=== PATIENT | female | born 1960 | race Asian ===

== ENCOUNTER 2024-04-05 13:29 | Outpatient (AMB) | payer OTHER, SELFPAY ==
--- NOTE | 2024-04-05 13:47 | MHC.OFFWIV ---
Intake Vital Signs 04/05/24 13:52 Height 4 ft 11 in Weight 45.359 kg BMI 20.2 BP 154/80 H Blood Pressure Location Rt brachial Position Sitting Pulse 73 Pulse Source Pulse Oximeter Pulse Oximetry (%) 97 Oxygen Delivery Method Room Air Intake Visit Reasons: EP cut on rt foot Intake Note: pt is here for cut on right foot Patient Tobacco Use Status: Never used Tobacco Allergies No Known Allergies Allergy (Verified 04/05/24 13:47) Do you need a note to return to daycare/school/sports/work: No HPI EP cut on rt foot HPI Details Patient presents with multiple issues. The 1st being as she is out of her blood pressure medication and has upcoming visit with her PCP in this clinic next month. Her 2nd concern is a laceration on her left foot sustained 4 days ago by the corner of a metal door. She notes cleaning the wound and applying Neosporin daily. She she denies pain, fever there is a small amount of pink area around it was concern for infection. [facility] Social History Patient Tobacco Use Status: Never used Tobacco Review of Systems Const Reports as per HPI and Reports no additional complaints Card Reports as per HPI and Reports no additional complaints Resp Reports as per HPI and Reports no additional complaints Musc Reports no additional complaints and Reports as per HPI Skin/Breast Denies lesions Physical Exam Vital Signs: Last Vital Signs Pulse 73 04/05/24 13:52 BP 154/80 H 04/05/24 13:52 Pulse Ox 97 04/05/24 13:52 Oxygen Delivery Method Room Air 04/05/24 13:52 BMI result Body Mass Index 20.2 Const General: cooperative, comfortable and no acute distress Orientation/consciousness: patient oriented x3 Resp Effort & Inspection: normal respiratory effort Auscultation: clear to auscultation bilaterally Cardio Rate: regular rate Rhythm: regular rhythm Heart sounds: S1 normal heart sound present and S2 normal heart sound present Skin Trauma: laceration right ankle linear (2.5 cm laceration healing well with a mild dusky pink surrounding wound 2 mm.), motor nerve function intact and sensation intact Neuro General: patient oriented x3 Results Reviewed Results Reviewed: Reviewed MIS immunization she has up-to-date tetanus done in January of 2022. Assessment & Plan Assessment & Plan (1) Hypertension: Code(s): I10 - Essential (primary) hypertension Qualifiers: Hypertension type: primary hypertension Qualified Code(s): I10 - Essential (primary) hypertension Plan: Refilled patient medication for 90 day supply until seen by PCP. (2) Laceration of right foot: Code(s): S91.311A - Laceration without foreign body, right foot, initial encounter Qualifiers: Encounter type: initial encounter Qualified Code(s): S91.311A - Laceration without foreign body, right foot, initial encounter Plan: Tetanus up-to-date. No signs or symptoms of infection today wound is healing well it does appear was somewhat deep and could have used closure by primary intention at the time. Discontinue use of Neosporin explain patient's often develop sensitivity after 1-2 days used to this. Cover to avoid friction with shoes otherwise can leave open to air. Medications: New hydrochlorothiazide 25 mg PO DAILY 90 tabs 0RF Coding Level of Care Code Est Pt Level 4 (14634) Diagnoses Primary hypertension I10 Hypertension type: primary hypertension Laceration of right foot, initial encounter S91.311A Encounter type: initial encounter
[2024-04-05 13:52] VITALS: BP 154/80; PULSE 73; O2SAT 97; BMI 20.2
== END 2024-04-05 14:29 | disposition home or self-care (01) ==
PROVIDERS: PCP Internal Medicine; Visit Provider Physician Assistant
DX: I10 Essential (primary) hypertension (principal); S91.311A Laceration without foreign body, right foot, initial encounter
CPT/HCPCS: 99214

== ENCOUNTER 2024-07-21 09:40 | Outpatient (AMB) | payer OTHER, SELFPAY ==
--- NOTE | 2024-07-21 09:57 | MHC.PC.OV ---
Vital Signs 07/21/24 10:00 07/21/24 10:24 Height 4 ft 11 in Weight 89 lb 8 oz BMI 18.1 BP 120/80 120/80 Blood Pressure Location Lt brachial Rt brachial Position Sitting Sitting Pulse 69 Pulse Source Pulse Oximeter Pulse Oximetry (%) 100 Oxygen Delivery Method Room Air Intake Visit Reasons: N/P b/P Intake Note: Pt is here today as a New Patient to [facility] care/B/P elevated Allergies No Known Allergies Allergy (Verified 07/21/24 10:25) Medication List - Last Reconciled 07/21/24 by Daisy Cordova MD estradiol 0.01%(0.1mg/gram) vaginal hydrochlorothiazide 25 mg PO DAILY Tobacco use date assessed: 07/21/24 Dental Screening Dental Screen Date: 07/21/24 Did you have a dental visit in the last 12 months?: Yes Did you have a dental problem in the last 6 months where you did not have access to dental care?: No Was dental information given to patient?: Patient has dentist HPI N/P b/P HPI Details 63-year-old lady, new to practice, here today to establish care with a new PCP. She has hypertension currently on hydrochlorothiazide only 25 mg daily. She states that she has states that she has been on these now for years, feels well on the medication with no nocturia, no weakness, no chest pain or lightheadedness, no shortness of breath reported. She sees Dr. Still for her routine Pap and pelvic, currently up-to-date. 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 States that she is up-to-date with her mammogram, and has had Cologuard testing done earlier this year which came back negative. [facility] Medical History (Updated 07/21/24 @ 10:28 by Daisy Cordova MD) Hx of uterine prolapse Vaginal dryness, menopausal Essential hypertension Surgical History (Updated 07/21/24 @ 10:28 by Daisy Cordova MD) S/P partial hysterectomy Family History (Updated 07/21/24 @ 10:32 by Daisy Cordova MD) Other No significant family history Social History Housing: House Patient Tobacco Use Status: Never used Tobacco e-Cigarette/Vaping Use: Never Used service: No Current occupational status: retired Cognitive needs: No Hearing needs: No Vision needs: Yes Female Reproductive History Menstrual Other: Sees Dr. Still, last Pap smear was done 06/2024, had a negative Cologuard test done also this year Questionnaire PHQ-9 Over the last 2 weeks, how often have you been bothered by any of the following problems? 1. Little interest or pleasure in doing things: not at all 2. Feeling down, depressed, or hopeless: not at all 3. Trouble falling or staying asleep, or sleeping too much: not at all 4. Feeling tired or having little energy: not at all 5. Poor appetite or overeating: not at all 6. Feeling bad about yourself - or that you are a failure or have let yourself or your family down: not at all 7. Trouble concentrating on things, such as reading the newspaper or watching television: not at all 8. Moving or speaking so slowly that other people could have noticed. Or the opposite - being so fidgety or restless that you have been moving around a lot more than usual: not at all 9. Thoughts that you would be better off or of hurting yourself in some way: not at all Total score: 0 Depression Screening Interpretation: Negative Depression Screening Done: Yes 88119 - PHQ-9 Billing: Yes Source: Developed by Drs. Kareem Haynes, Connie Morataya, Dylan Myrick and colleagues, with an educational manuel from [employer]. Thrive Questionnaire Date Thrive assessed: 07/21/24 I am a: Patient What is your living situation today?: I have a steady place to live Within the past 12 months, did the food you bought not last and you didn't have the money to get more?: Never true Within the past 12 months, did you worry whether your food would run out before you got money to buy more?: Never true Do you have trouble paying for medicines?: No Do you have trouble getting transportation to medical appointments?: No Do you have trouble paying your heating and electricity bill?: No Do you have trouble taking care of your child, family member or friend?: No Do you have trouble with day-to-day activities such as bathing, preparing meals, shopping, managing finances, etc.?: No Are you interested in more education?: No Please select the resources that you would like help with: None Currently or been in a relationship where the following occur: No concerns reported THRIVE Score: 0 AUDIT C Alcohol Use Questionnaire (AUDIT-C) 1. How often do you have a drink containing alcohol?: Never Total Score: 0 ROME-7 AMB Questionnaire ROME-7 Date ROME - 7 assessed: 07/21/24 Feeling nervous, anxious, or on edge: 0 = Not at all Not being able to stop or control worryin = Not at all Worrying too much about different things: 0 = Not at all Trouble relaxin = Not at all Being so restless that it is hard to sit still: 0 = Not at all Becoming easily annoyed or irritable: 0 = Not at all Feeling afraid as if something awful might happen: 0 = Not at all Total ROME-7 score (0-4 normal; 5-9 mild; 10-14 moderate; 15-21 severe): 0 Source: Developed by Drs. Kareem Haynes, Connie Morataya, Dylan Myrick and colleagues, with an educational manuel from [employer]. ROME-7 Assessment Billing ROME-7 Assessment Tool: ROME-7 Assessment 51264 Review of Systems Const Denies body aches, Denies fatigue, Denies fever(s), Denies headache(s) and Denies weakness Eyes Denies change in vision ENT Denies dizziness, Denies headache(s), Denies nasal congestion and Denies nasal discharge Card Denies chest pain, Denies lightheadedness, Denies palpitations and Denies dyspnea Resp Denies chest congestion, Denies cough, Denies dyspnea and Denies wheezing GI Denies abdominal pain, Denies change in bowel habits and Denies heartburn Denies hematuria, Denies urinary frequency, Denies dysuria and Denies urinary urgency Musc Reports no additional complaints Skin/Breast Denies breast pain, Denies breast mass, Denies lesions and Denies rash Neuro Denies dizziness, Denies headache(s) and Denies weakness Psych Reports no additional complaints Endo Denies fatigue, Denies polydipsia, Denies polyuria and Denies palpitations Timi/Lymph Denies easy bruising Aller/Immun Denies seasonal rhinorrhea and Denies wheezing Physical exam (Primary Care) Vital Signs: Last Vital Signs Pulse 69 07/21/24 10:00 BP 120/80 07/21/24 10:24 Pulse Ox 100 07/21/24 10:00 Oxygen Delivery Method Room Air 07/21/24 10:00 BMI result Body Mass Index 18.1 Tobacco/Smoking Status: Tobacco use Status Tobacco use date assessed 07/21/24 07/21/24 10:05 Patient Tobacco Use Status Never used Tobacco 07/21/24 09:58 e-Cigarette/Vaping Use Never Used 07/21/24 10:05 PHQ-9: PHQ-9 Score PHQ-9: Total score 0 07/21/24 10:22 Depression Screening Interpretation: Negative Thrive Assessment: Date of Thrive Assessment Date Thrive assessed 07/21/24 07/21/24 10:05 Currently or been in a relationship where the following occur: No concerns reported Const General: comfortable, no acute distress and alert Orientation/consciousness: patient oriented x3 HENMT Ears: external ears normal General nose exam: Normal external nose present Mouth: Normal oral and palatal mucosa present, oropharynx normal and moist mucous membranes Eyes General: appearance normal, both eyes and all related structures Neck Neck: Yes full ROM, Yes no lymphadenopathy and Yes supple Resp Effort & Inspection: normal respiratory effort and able to speak in complete sentences Auscultation: clear to auscultation bilaterally Cardio Rate: regular rate Rhythm: regular rhythm Heart sounds: S1 normal heart sound present and S2 normal heart sound present GI Palpation (GI): Soft to palpation, nontender and no masses Auscultation: normal bowel sounds Skin General skin exam: no rashes or lesions noted Neuro General: patient oriented x3, gait normal, tone normal, moves all extremities, Normal light touch and pain sensation and no focal motor deficits Cranial nerves: Yes CN's II-XII intact bilaterally Cognition (Neuro): normal cognition Extrem General: Yes full ROM, Yes no joint enlargement, Yes no clubbing, cyanosis or edema and Yes no calf tenderness Psych Appearance: grossly normal and well kempt Mental Status: mental status grossly normal Speech and movement: Normal speech and movement present Affect: normal affect Attitude: cooperative Thought process: Normal thought process present Thought content: Normal thought content present Assessment and Plan Assessment & Plan (1) Essential hypertension: Code(s): I10 - Essential (primary) hypertension Plan: Blood pressure at goal of less than 130/80. Continue with current medication. Reinforced importance of following a low sodium diet, getting regular exercise, and lowering stress levels. Refill prescription sent for hydrochlorothiazide 25 mg per tablet taken once a day 90 tablets with 3 refills. (2) Vaginal dryness, menopausal: Code(s): N95.1 - Menopausal and female climacteric states Plan: Uses estradiol 0.01% vaginal cream as needed for vaginal dryness, currently being followed by Dr. Still, copy of last Pap smear, mammogram and Cologuard test results requested Orders: Orders Aspartate Amino Transferase Today I10 - Essential (primary) hypertension, Z78.0 - Asymptomatic menopausal state Lipid Panel Today I10 - Essential (primary) hypertension, Z78.0 - Asymptomatic menopausal state Vitamin D 25-OH Total Today I10 - Essential (primary) hypertension, Z78.0 - Asymptomatic menopausal state Basic Metabolic Panel Fasting Today I10 - Essential (primary) hypertension, Z78.0 - Asymptomatic menopausal state Alanine Aminotransferase Today I10 - Essential (primary) hypertension, Z78.0 - Asymptomatic menopausal state Medications: Refilled hydrochlorothiazide 25 mg PO DAILY 90 tabs 2RF Coding Level of Care Code New Pt Level 3 (34828) Diagnoses Essential hypertension I10 Vaginal dryness, menopausal N95.1 Additional Codes ROME-7 Assessment Billing - ROME-7 Assessment Tool: ROME-7 Assessment 22963 ([id number])
[2024-07-21 10:00] VITALS: BP 120/80; PULSE 69; O2SAT 100; BMI 18.1
[2024-07-21 10:24] VITALS: BP 120/80
== END 2024-07-21 10:58 | disposition home or self-care (01) ==
PROVIDERS: PCP Internal Medicine; Visit Provider Internal Medicine
DX: I10 Essential (primary) hypertension (principal); N95.1 Menopausal and female climacteric states

== ENCOUNTER → 2024-07-21 09:40 | Outpatient (BNVA) | payer OTHER, SELFPAY | PROVIDERS: PCP Internal Medicine; Visit Provider Internal Medicine | DX: I10 Essential (primary) hypertension (principal); N95.1 Menopausal and female climacteric states | CPT/HCPCS: 96127; 99202 ==

== ENCOUNTER 2024-07-28 12:59 | Outpatient (REF) | payer OTHER, SELFPAY ==
[2024-07-28 17:01] LABS: Alanine Aminotransferase 19 U/L (0-31); Anion Gap 11 (12-20); Aspartate Amino Transferase 22 U/L (5-31); Blood Urea Nitrogen 13 mg/dL (9-16); Calcium 9.4 mg/dL (8.4-10.2); Carbon Dioxide 27 mmol/L (22-29); Chloride 106 mmol/L (96-108); Cholesterol 252 mg/dL (<200); Estimated Glomerular Filt Rate > 60; Glucose Fasting 93 mg/dL (60-99); HDL Cholesterol 60 mg/dL (>40); LDL Cholesterol Calculated 154 mg/dL (<100); Potassium 3.6 mmol/L (3.3-5.1); Sodium 140 mmol/L (135-145); Triglycerides 192 mg/dL (<150)
[2024-07-28 17:19] LABS: Vitamin D 25-OH Total 39.6 ng/mL (>30)
== END 2024-07-28 13:00 | disposition home or self-care (01) ==
LOC: HO.HMGCLDS 12:59
PROVIDERS: PCP Internal Medicine; Visit Provider Internal Medicine
DX: I10 Essential (primary) hypertension (principal); Z78.0 Asymptomatic menopausal state
CPT/HCPCS: 36415; 80048; 80061; 82306; 84450; 84460

== ENCOUNTER 2024-10-05 12:30 | Outpatient (AMB) | payer OTHER, SELFPAY ==
[2024-10-05 13:08] VITALS: BP 138/90; PULSE 75; O2SAT 99
--- NOTE | 2024-10-05 13:08 | MHC.OFFWIV ---
Intake Vital Signs 10/05/24 13:08 Weight 90 lb 6 oz BP 138/90 H Blood Pressure Location Lt brachial Position Sitting Pulse 75 Pulse Source Pulse Oximeter Pulse Oximetry (%) 99 Oxygen Delivery Method Room Air Intake Visit Reasons: EP rash on RT eye, itching Intake Note: Patient here for rash on right eye, also has rash on back that has been present for abut 3 weeks. Patient Tobacco Use Status: Never used Tobacco Allergies No Known Allergies Allergy (Verified 10/05/24 13:15) Do you need a note to return to daycare/school/sports/work: No HPI EP rash on RT eye, itching HPI Details This note is constructed using voice recognition software. While every effort has been made to ensure accuracy, card cutter errors may have been included. The patient is a 63 year old female who presents to the clinic today with itchy rash to right eyelid in her back for the past 3 weeks. She denies any new soaps, lotions, detergents, foods. She notes that her skin gets itchy, she puts got calamine lotion and improves, and then it comes back. She denies fever or joint pains. She has not had anything like this before. [facility] Medical History (Updated 07/21/24 @ 10:28 by Daisy Cordova MD) Hx of uterine prolapse Vaginal dryness, menopausal Essential hypertension Surgical History (Updated 07/21/24 @ 10:28 by Daisy Cordova MD) S/P partial hysterectomy Family History (Updated 07/21/24 @ 10:32 by Daisy Cordova MD) Other No significant family history Social History Housing: House Patient Tobacco Use Status: Never used Tobacco e-Cigarette/Vaping Use: Never Used service: No Current occupational status: retired Cognitive needs: No Hearing needs: No Vision needs: Yes Review of Systems Const All systems reviewed & are unremarkable except as noted in HPI and below Physical Exam Vital Signs: Last Vital Signs Pulse 75 10/05/24 13:08 BP 138/90 H 10/05/24 13:08 Pulse Ox 99 10/05/24 13:08 Oxygen Delivery Method Room Air 10/05/24 13:08 Const General: cooperative, healthy appearing, comfortable, no acute distress and well developed Orientation/consciousness: patient oriented x3 Limitations: no limitations Resp Effort & Inspection: normal respiratory effort and able to speak in complete sentences Skin Other: Dry excoriated skin to right upper eyelid, with similar pattern to upper back. No surrounding erythema, warmth, discharge, or signs of secondary bacterial infection. Neuro General: patient oriented x3 Assessment & Plan Assessment & Plan (1) Eczema: Code(s): L30.9 - Dermatitis, unspecified Qualifiers: Eczema type: unspecified Qualified Code(s): L30.9 - Dermatitis, unspecified Plan: Advised to increase hydration, application of emollients. Systemic steroid prescribed for symptomatic management due to location and widespread symptoms. Advised follow up with PCP with worsening or failure to resolve. Plan See above for full details and plan. Medications: New prednisone 5 tablets daily for 2 days, then 4 tablets daily for 2 days, then 3 tablets daily for 2 days, then 2 tablets daily for 2 days, then 1 tablet daily for 2 days. 10 mg PO DIRECTED 30 tabs 0RF Coding Level of Care Code Est Pt Level 3 (53239) Diagnoses Eczema, unspecified type L30.9 Eczema type: unspecified
== END 2024-10-05 13:37 | disposition home or self-care (01) ==
PROVIDERS: PCP Internal Medicine; Visit Provider Registered Nurse
DX: L30.9 Dermatitis, unspecified (principal)

== ENCOUNTER → 2024-10-05 12:30 | Outpatient (BNVA) | payer OTHER, SELFPAY | PROVIDERS: PCP Internal Medicine; Visit Provider Registered Nurse | DX: L30.9 Dermatitis, unspecified (principal) | CPT/HCPCS: 99212 ==

== ENCOUNTER 2025-03-29 13:20 | Outpatient (AMB) | payer OTHER, SELFPAY ==
--- NOTE | 2025-03-29 13:26 | AM.OFFWIN_ITS ---
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 No discharge No fever or chills No one with similar rash She admits to having it in thr past and being seen; was given a Prednisone in October and it resolved it No vision changes but sometimes notices itchy eyes. Has tried saline eye drops which helps Some congestion associated but none currently No CP or SOB/cough Ears blocked: She said intermittent blocked No pain associated, 0/10 No drainage frome ars [facility] Medical History (Updated 03/29/25 @ 14:06 by Nay Monreal PA-C) Hx of uterine prolapse Vaginal dryness, menopausal Essential hypertension Surgical History (Updated 07/21/24 @ 10:28 by Daisy Cordova MD) S/P partial hysterectomy Family History (Updated 07/21/24 @ 10:32 by Daisy Cordova MD) Other No significant family history Social History Housing: House Patient Tobacco Use Status: Never used Tobacco e-Cigarette/Vaping Use: Never Used Patient : No service: No Current occupational status: retired Cognitive needs: No Hearing needs: No Vision needs: Yes Review of Systems Const Denies chills, Denies fever(s) and Denies headache(s) Eyes Denies change in vision, Reports irritation and Reports itchy eyes ENT Denies ear discharge, Denies otalgia (+ blocked ears), Denies headache(s), Reports nasal congestion and Denies sore throat Card Denies chest pain Resp Denies cough Musc Denies myalgias Skin/Breast Reports pruritus and Reports rash Neuro Denies headache(s) Aller/Immun Reports itchy eyes Physical Exam Vital Signs: Last Vital Signs Temp 98.1 F 03/29/25 13:30 Pulse 76 03/29/25 13:30 Resp 16 03/29/25 13:30 BP 140/70 H 03/29/25 13:30 Pulse Ox 98 03/29/25 13:30 Oxygen Delivery Method Room Air 03/29/25 13:30 BMI result Body Mass Index 20.2 General: Non-toxic, NAD. Speaking full sentences. Skin: Warm dry throughout. Pt has approx 7 patches of dry slightly erythematous skin with scabbed 1-2mm circular lesions. + excoriations. No discharge, induration or fluctuance. patches of dry erythematous skin are located to Eye: EOMI, PERRL. No conjunctival erythema or discharge. No periorbital edema or erythema or rashes/lesions HENT: Airway patent. Uvula midline. No pharyngeal erythema or edema. No LEVEL VIAL INSPECTOR AND TESTER. Bilateral canals occluded with cerumen Respiratory: No respiratory distress MSK: Full ROM extremities. Neurology: Alert. No aphasia or facial droop. Gait without abnormality Psych: Good mood and affect Office Procedures Cerumen Removal Details: verbal consent obtained. Curette and irrigation used. Pt tolerated well without complication. No TM perforation or canal trauma From which ear canal was the cerumen removed: bilateral Removal: irrigation and otoscope w/curette Notes: patient tolerated procedure well, no complications and ear canal clear [id number] Wax Removal by Spoon/Curette Assessment & Plan Assessment & Plan (1) Impacted cerumen of both ears: Code(s): H61.23 - Impacted cerumen, bilateral Plan: see procedure note (2) Contact dermatitis: Code(s): L25.9 - Unspecified contact dermatitis, unspecified cause Qualifiers: Contact dermatitis type: unspecified Contact dermatitis trigger: unspecified trigger Qualified Code(s): L25.9 - Unspecified contact dermatitis, unspecified cause Plan: No sign of scabies or cellulitis on exam Rash not fungal appearing in nature Will tx with topical cortisone and avoid oral medication at this time due to specific locations; rash not diffuse Discussed tx usage and worsening s/s to monitor for All questions answered at time of discharge Pt gave verbal understanding. Medications: New triamcinolone acetonide 0.5% 1 appl topical BID PRN 15 grams 2RF itching 14 days Coding Level of Care Code Est Pt Level 3 (42689) Diagnoses Impacted cerumen of both ears H61.23 Contact dermatitis, unspecified contact dermatitis type, unspecified trigger L25.9 Contact dermatitis type: unspecified Contact dermatitis trigger: unspecified trigger CPT Codes Office Procedure - CPT: 74579-Rbn Wax Removal by Spoon/Curette ([id number])
[2025-03-29 13:30] VITALS: BP 140/70; PULSE 76; RESP 16; TEMP 36.7; O2SAT 98; BMI 20.2
== END 2025-03-29 13:59 | disposition home or self-care (01) ==
PROVIDERS: PCP Internal Medicine; Visit Provider Physician Assistant
DX: L25.9 Unspecified contact dermatitis, unspecified cause (principal); H61.23 Impacted cerumen, bilateral

== ENCOUNTER → 2025-03-29 13:20 | Outpatient (BNVA) | payer OTHER, SELFPAY | PROVIDERS: PCP Internal Medicine; Visit Provider Physician Assistant | DX: H61.23 Impacted cerumen, bilateral (principal); L25.9 Unspecified contact dermatitis, unspecified cause | CPT/HCPCS: 69210; 99212 ==

== ENCOUNTER 2025-05-09 10:47 | Outpatient (REF) | payer OTHER, SELFPAY ==
--- OUTSIDE RECORDS SUMMARY | 2025-05-09 11:50 | XMS_ITS | Patient Health Record ---
Author Organization [facility] Address [address] [place] [address] Care Team Providers Care Metal Smelter Name Role Phone PHAN DEMARCO MD Primary Care Provider Yasminekleber mirella Latrice Still Unavailable [phone] Allergies No Known Allergies Results Component Value Reference Range Notes Urinalysis Reviewed date:06/20/2024 02:24:45 PM Interpretation: Performing Lab: Notes/Report: PH 6.0 PROTEIN Neg GLUCOSE Neg BLOOD Neg [id number] IGP No Culture 30 Plus Reviewed date:06/24/2024 08:50:35 AM Interpretation: Performing Lab:[facility] [place], [address], [address], [place], Phone - [phone], Director - [facility] Notes/Report: Clinical Information:Vaginal/Cervical, LMP: Hys t 11/2021 Source.............Cervix;Vagina LMP / Prev Treat...Hyst Dates / Results....03/28/21 ASCUS, Neg HPV Other..............Post Menopausal;Estrogen Replace Rx No. of containers..01 ThinPrep Vial DIAGNOSIS: NEGATIVE FOR IN TRAEPITHELIAL LESION OR MALIGNANCY. Specimen adequacy: Satisfact ory for evaluation. No endocervical component is identified. Clinician provided ICD10: Z0 1.419 Performed by: Keny Nugent Technical Support Assistant ([facility]) . . Note: The Pap smear is a screening test designed to aid in the detection of premalignant and malignant conditions of the uterine cervix. It is not a diagnostic procedure and should not be used as the sole means of detecting cervical cancer. Both false-positive and false-negative reports do occur. . Test Methodology: This liquid based ThinPrep(R) pap test was screened with the use of an image guided system. HPV Aptima Negative Negative This nucleic acid amplification test detects fourteen high-risk HPV types (16,18,31,33,35,39,45,51,52,56,58 ,59,66,68) without differentiation. HPV Genotype Reflex Criteria not met, HPV Genotype not performed. PDF Report Reviewed date:06/24/2024 08:50:16 AM Interpretation: Performing Lab:[facility] [place], [address], [address], [place], Phone - [phone], Director - [facility] Notes/Report: Clinical Information:Vaginal/Cervical, LMP: Hys t 11/2021 Source.............Cervix;Vagina LMP / Prev Treat...Hyst Dates / Results....03/28/21 ASCUS, Neg HPV Other..............Post Menopausal;Estrogen Replace Rx No. of containers..01 ThinPrep Vial Reason For Referral No Information Medications Medication SIG (Take, Route, Frequency, Duration) Notes Start Date End Date Status hydroCHLOROthiazide 25 MG 1 tablet Orall y Once a day Active Estradiol 0.1 MG/GM 1 GRAM Vaginal Two times a Week; Duration: 90 days 06/20/2024 Active Estradiol Vaginal Cream 0.01% 1 Gram to the affected area Vaginal/Vulva Twice a week; Duration: 90 Days 06/17/2023 Active Social History Tobacco Use: Social History Observation Description Date Details (start date - stop date) Never Smoker NA - NA Sexual History Question Answer Notes Had sex in the past 12 months (vaginal, oral, or anal)? Yes with Men only Prevention strategies discussed: Other AUDIT-C (Standard) Question Answer Notes Did you have a drink containing alcohol in the p ast year? 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 CONTRACEPTION: condoms .CE: Smoking: Never a smoker .CE: ALCOHOL: none TEXT MESSAGING WHILE DRIVING: no SUNSCREEN: yes ILLICIT DRUGS: no SEATBEALT: yes Problems Problem Type SNOMED Code ICD Code Onset Dates Problem Status W/U Status Risk Notes Problem Postmenopausal atrophic vaginitis (38630112) Postmenopausal atrophic vaginitis (N95.2) Active confirmed Problem Incomplete uterovaginal prolapse (793547420) Incomplete uterovaginal prolapse (N81.2) Active confirmed Problem Herniation of rectum into vagina (134523446) Rectocele (N81.6) Active confirmed Problem Age-related osteoporosis (064944487) Age-related osteoporosis without current pathological fracture (M81.0) Active confirmed Problem Cystocele (393647829) Cystocele, unspecified (N81.10) Active confirmed Problem Benign essential hypertension (5174891) Essential hypertension, benign (401.1) Active confirmed Major Problem Gynecological examination normal (582427119347436) Routine gynecological examination (V72.31) Active confirmed Major Problem Screening for malignant neoplasm of colon (132132798) Special screening for malignant neoplasms, colon (V76.51) Active confirmed Major Vital Signs Temperature 97.9 degrees Fahrenheit 06/20/2024 Blood pressure diastolic 80 mm Hg 06/20/2024 Height 59 in 06/20/2024 Blood pressure systolic 126 mm Hg 06/20/2024 Weight 88 lbs 06/20/2024 BMI 17.77 kg/m2 06/20/2024 Encounters Encounter Location Date Provider Diagnosis [facility] [address] [place] [address] 06/20/2024 Latrice Still Encounter for gynecological examination (general) (routine) without abnormal findings Z01.419 ; Encounter for screening mammogram for malignant neoplasm of breast Z12.31 ; Postmenopausal atrophic vaginitis N95.2 and Encounter for screening for osteoporosis Z13.820 [facility] [place] [address] [place] [address] 10/03/2024 Latrice Still Encounter for screening for osteoporosis Z13.820 and Age-related osteoporosis without current pathological fracture M81.0 Assessments Encounter Date Diagnosis (ICD Code) Assessment Notes Treatment Notes Treatment Clinical Notes Section Notes 06/20/2024 Encounter for gynecological examination (general) (routine) without abnormal findings (ICD-10 - Z01.419) PAP TEST WITH HPV TYPING WAS OBTAINED (LAST) 10/03/2024 Encounter for screening for osteoporosis (ICD-10 - Z13.820) 10/03/2024 Age-related osteoporosis without current pathological fracture (ICD-10 - M81.0) 06/20/2024 Encounter for screening mammogram for malignant neoplasm of breast (ICD-10 - Z12.31) REGULAR MAMMOGRAMS AND SBE'S WERE RECOMMENDED. 06/20/2024 Postmenopausal atrophic vaginitis (ICD-10 - N95.2) CONTINUE ESTRADIOL CREAM. 06/20/2024 Encounter for screening for osteoporosis (ICD-10 - Z13.820) BONE DENSITY WAS ORDERED. Plan Of Treatment Pending Test Test Name Order Date MAMMOGRAM, SCREENING 03/28/2021 MAMMOGRAM, SCREENING 06/16/2022 MAMMOGRAM, SCREENING 06/17/2023 MAMMOGRAM, SCREENING 06/20/2024 Urinalysis 06/16/2022 THIN PREP,HPV,GIOVANNY IF HPV+ (>29YR)(SCRN) 02/23/2018 BONE DENSITY 03/28/2021 BONE DENSITY 06/20/2024 MM Digital Mammo Screening 10/09/2016 MM Digital Mammo Screening 06/15/2019 MM Digital Mammo Screening 03/28/2021 MM Digital Mammo Screening 06/16/2022 MM Digital Mammo Screening 06/20/2024 MM Digital Mammo Screening 06/17/2023 [id number] 10/03/2024 CBC With Differential/Platelet-579146 PTH, Intact-700996 10/03/2024 Vitamin D, 99-Goybssw-[id number] 10/03/2024 Comp. Metabolic Panel [id number] 2023 Next Appt Details Provider Name:Latrice Farley constanza, 06/22/2025 01:00:00 PM, [address] [place] [address], [address], [place], [address], Insurance Providers Payer Name Payer Address Payer Phone Subscriber Number Group Number Insured Name Patient Relationship to Insured Coverage Start Date Coverage End Date [facility] [address] [place], [place] [id number] EFRAIN RECIO Self - patient is the insured Medical (General) History Medical History History ICD Code Essential (primary) hypertension I10 Epidermal thickening, unspecified L85.9 Inconclusive mammogram R92.2 Postmenopausal atrophic vaginitis N95.2 Incomplete uterovaginal prolapse N81.2 Cystocele, unspecified N81.10 Rectocele N81.6 Mammographic heterogeneous density, bila teral breasts R92.333 Surgical History Surgery Date(Month/Year) Colonoscopy 2010 UTERINE PROLAPSE S/P HYSTERECTOMY 11/2021 Hospitalization History Reason Date(Month/Year) 2 Vaginal Deliveries
--- OUTSIDE RECORDS SUMMARY | 2025-05-09 11:50 | XMS_ITS | Encounter Summary ---
Author Organization [facility] Address [facility] [place] [address] Care Team Providers Care Estate Planning Counselor Name Role Phone Valencia Horowitz DO Primary Care Pro vider Unavailable Curtis Lazar MD Primary Care Provider Carlos Santo MD Primary Care Provider Patti Childress MD Primary Care Provider [phone] Encounter Details Date Type Department Care Team Description 12/26/2014 Orders Only Adult Medicine [address] [address] Valencia Horowitz DO Hypokalemia; Hypercalcemia; Dyslipidemia Social History Tobacco Use Types Packs/Day Years Used Date Smoking Tobacco: Never Smokeless Tobacco: Never Alcohol Use Standard Drinks/Week Comments No 0 (1 standard drink = 0.6 oz pur e alcohol) Sex Assigned at Date Recorded Not on file Job Start Date Occupation Industry Not on file Not on file Not on file documented as of this encounter Plan of Treatment Scheduled Orders Name Type Priority Associated Diagnoses Orde r Schedule COMPREHENSIVE METABOLIC PANEL Lab Routine Hypokalemia Expected: 12/26/2014, Expires: 12/26/2015 IONIZED CALCIUM IN BLOOD Lab Routine Hypercalcemia Expected: 12/26/2014, Expires: 12/26/2015 documented as of this encounter Visit Diagnoses Diagnosis Hypokalemia Hypopotassemia Hypercalcemia Dyslipidemia Other and unspecified hyperlipidemia documented in this encounter Care Teams Estate Planning Counselor Relationship Specialty Start Date End Date Valencia Horowitz DO PCP - General Internal Medicine 05/11/14 04/30/21 Curtis Lazar MD PCP - General Internal Medicine 05/01/21 09/10/21 Carlos Mittal MD PCP - General Internal Medicine 09/11/21 09/22/21 Patti Patino MD [address] [place] [address] PCP - General Internal Medicine 09/23/21 documented as of this encounter
[2025-05-09 13:54] LABS: Hematocrit 40.8 % (37.0-47.0); Hemoglobin 13.7 g/dl (12.0-16.0)
[2025-05-09 14:30] LABS: Alanine Aminotransferase 30 U/L (0-31); Anion Gap 11 (12-20); Aspartate Amino Transferase 33 U/L (5-31); Blood Urea Nitrogen 13 mg/dL (9-16); Calcium 9.0 mg/dL (8.4-10.2); Carbon Dioxide 28 mmol/L (22-29); Chloride 104 mmol/L (96-108); Cholesterol 250 mg/dL (<200); Estimated Glomerular Filt Rate > 60; HDL Cholesterol 51 mg/dL (>40); Potassium 3.2 mmol/L (3.3-5.1); Sodium 140 mmol/L (135-145); Triglycerides 261 mg/dL (<150)
== END 2025-05-09 10:48 | disposition home or self-care (01) ==
LOC: HO.HMGCLDS 10:47
PROVIDERS: PCP Internal Medicine; Visit Provider Internal Medicine
DX: I10 Essential (primary) hypertension (principal); Z13.220 Encounter for screening for lipoid disorders; Z78.0 Asymptomatic menopausal state
CPT/HCPCS: 36415; 80048; 80061; 82306; 84450; 84460; 85014; 85018

== ENCOUNTER 2025-05-10 09:28 | Outpatient (AMB) | payer OTHER, SELFPAY ==
--- OUTSIDE RECORDS SUMMARY | 2025-05-10 09:53 | XMS_ITS | Patient Health Record ---
Author Organization [facility] Address [address] [place] [address] Care Team Providers Care Alarm Signal Operator Name Role Phone PHAN DEMARCO MD Primary Care Provider Yasminev Latrice Vidales Unavailable [phone] Allergies No Known Allergies Results Component Value Reference Range Notes PDF Report Reviewed date:06/24/2024 08:50:16 AM Interpretation: Performing Lab:[facility] [place], [address], [address], [place], Phone - [phone], Director - [facility] Notes/Report: No. of containers..01 ThinPrep Vial Other..............Post Menopausal;Estrogen Replace Rx Dates / Results....03/28/21 ASCUS, Neg HPV LMP / Prev Treat...Hyst Source.............Cervix;Vagina Clinical Information:Vaginal/Cervical, LMP: Hys t 11/2021 [id number] IGP No Culture 30 Plus Reviewed date:06/24/2024 08:50:35 AM Interpretation: Performing Lab:[facility] [place], [address], [address], [place], Phone - [phone], [facility] Notes/Report: Clinical Information:Vaginal/Cervical, LMP: Hys t 11/2021 Source.............Cervix;Vagina LMP / Prev Treat...Hyst Dates / Results....03/28/21 ASCUS, Neg HPV Other..............Post Menopausal;Estrogen Replace Rx No. of containers..01 ThinPrep Vial DIAGNOSIS: NEGATIVE FOR IN TRAEPITHELIAL LESION OR MALIGNANCY. Specimen adequacy: Satisfact ory for evaluation. No endocervical component is identified. Clinician provided ICD10: Z0 1.419 Performed by: Keny Nugent , Vulcan Crewmember ([facility]) . . Note: The Pap smear [...] Criteria not met, HPV Genotype not performed. 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 CONTRACEPTION: condoms .CE: Smoking: Never a smoker .CE: ALCOHOL: none TEXT MESSAGING WHILE DRIVING: no SUNSCREEN: yes ILLICIT DRUGS: no SEATBEALT: yes Problems Problem Type SNOMED Code ICD Code Onset Dates Problem Status W/U Status Risk Notes Problem Postmenopausal atrophic vaginitis (80181365) Postmenopausal atrophic vaginitis (N95.2) Active confirmed Problem Incomplete uterovaginal prolapse (414293559) Incomplete uterovaginal prolapse (N81.2) Active confirmed Problem Herniation of rectum into vagina (582034425) Rectocele (N81.6) Active confirmed Problem Age-related osteoporosis (364471920) Age-related osteoporosis without current pathological fracture (M81.0) Active confirmed Problem Cystocele (630800900) Cystocele, unspecified (N81.10) Active confirmed Problem Benign essential hypertension (7647690) Essential hypertension, benign (401.1) Active confirmed Major Problem Gynecological examination normal (937463702528985) Routine gynecological examination (V72.31) Active confirmed Major Problem Screening for malignant neoplasm of colon (707386580) Special screening for malignant neoplasms, colon (V76.51) Active confirmed Major Vital Signs Temperature 97.9 degrees Fahrenheit 06/20/2024 Blood pressure diastolic 80 mm Hg 06/20/2024 Height 59 in 06/20/2024 Blood pressure systolic 126 mm Hg 06/20/2024 Weight 88 lbs 06/20/2024 BMI 17.77 kg/m2 06/20/2024 Encounters Encounter Location Date Provider Diagnosis [facility] [employer] [facility] [address] [place] [address] 06/20/2024 Latrice Still Encounter for gynecological examination (general) (routine) without abnormal findings Z01.419 ; Encounter for screening mammogram for malignant neoplasm of breast Z12.31 ; Postmenopausal atrophic vaginitis N95.2 and Encounter for screening for osteoporosis Z13.820 [facility] [place] [address] [place] [address] 10/03/2024 Latrice Still Encounter for screening for [...] Screening 06/20/2024 MM Digital Mammo Screening 06/17/2023 [id number] 10/03/2024 CBC With Differential/Platelet-791463 PTH, Intact-271322 10/03/2024 Vitamin D, 19-Ceuzjee-232186 10/03/2024 Comp. Metabolic Panel [id number] 2023 Next Appt Details Provider Name:Latrice Farley constanza, 06/22/2025 01:00:00 PM, [address] [place] [address], [address], [place], [address], Insurance Providers Payer Name Payer Address Payer Phone Subscriber Number Group Number Insured Name Patient Relationship to Insured Coverage Start Date Coverage End Date [facility] [address] [place], [place] [id number] EFRAIN RECIO Self - patient is the [...]
[2025-05-10 10:28] VITALS: BP 122/76; PULSE 83; RESP 15; TEMP 36.8; O2SAT 99; BMI 19.4
--- NOTE | 2025-05-10 10:28 | A.OFFPC_ITS ---
Vital Signs 05/10/25 10:28 Height 4 ft 11 in Weight 96 lb BMI 19.4 BP 122/76 Blood Pressure Location Rt brachial Position Sitting Respiration 15 Pulse 83 Pulse Source Pulse Oximeter Temp 98.3 F Temp Source Oral Pulse Oximetry (%) 99 Oxygen Delivery Method Room Air Intake Visit Reasons: PE Intake Note: Pt is here today for her PE: Last mammogram 09/21/2024, papsmear 06/20/24, cologuard 06/28/24 Allergies No Known Allergies Allergy (Verified 05/10/25 10:55) Medication List - Last Reconciled 05/10/25 by Daisy Cordova MD estradiol 0.01%(0.1mg/gram) vaginal hydrochlorothiazide 25 mg PO DAILY triamcinolone acetonide 0.5% 1 appl topical BID PRN 14 days Tobacco use date assessed: 05/10/25 Dental Screening Dental Screen Date: 05/10/25 Did you have a dental visit in the last 12 months?: Yes Did you have a dental problem in the last 6 months where you did not have access to dental care?: No Was dental information given to patient?: Patient has dentist HPI PE HPI Details 64-year-old lady with history hypertensi on currently on hydrochlorothiazide 25 mg daily, here today for her physical exam. Blood pressure better controlled on hydrochlorothiazide but patient complaining of frequent urination and noted to be hypokalemic on last labs done. She had recent fasting labs done which showed elevated triglycerides and LDL cholesterol and fasting glucose in the prediabetic range. Up-to-date with her colon cancer screening, had a negative Cologuard done 06/28/2024. Overdue for her screening for breast cancer with last mammogram done in 2023 with benign findings, has appointment already scheduled for June 22 for her repeat mammogram Last cervical cancer screening, last done 06/20/2024 with negative findings. Had a bone density done 09/2024 ordered by her OB which showed presence of osteoporosis in lumbar spine and left femoral neck with osteopenia in left femur. No history of fractures. Patient states that she has not been started on any medication for this, has an appointment to see her back for follow-up on 22 of June. Up-to-date with all her vaccine, but would like to be screened for ongoing immunity against measles [facility] Medical History Osteoporosis Impaired fasting glucose Mixed dyslipidemia Skin cancer screening Hx of uterine prolapse Vaginal dryness, menopausal Essential hypertension Surgical History S/P partial hysterectomy Family History Other No significant family history Social History Housing: House Patient Tobacco Use Status: Never used Tobacco e-Cigarette/Vaping Use: Never Used service: No Current occupational status: retired Cognitive needs: No Hearing needs: No Vision needs: Yes Female Reproductive History Menstrual Date of last pap smear: 06/23/24 (Sees Dr. Still, negative HPV) Date of Mammogram: 09/21/24 (Done at [facility] ordered by Dr. Still) Date of last Bone Density Screenin09/21/24 (Ordered by Dr. Still which showed a T-score of-2.9 in AP spine and T-score of-2.6 in left femoral neck, osteopenia with a T-score of-1.8 and total hip) Questionnaire PHQ-9 Over the last 2 weeks, how often have you been bothered by any of the following problems? 1. Little interest or pleasure in doing things: not at all 2. Feeling down, depressed, or hopeless: not at all 3. Trouble falling or staying asleep, or sleeping too much: not at all 4. Feeling tired or having little energy: not at all 5. Poor appetite or overeating: not at all 6. Feeling bad about yourself - or that you are a failure or have let yourself or your family down: not at all 7. Trouble concentrating on things, such as reading the newspaper or watching television: not at all 8. Moving or speaking so slowly that other people could have noticed. Or the opposite - being so fidgety or restless that you have been moving around a lot more than usual: not at all 9. Thoughts that you would be better off or of hurting yourself in some w ay: not at all Total score: 0 Depression Screening Interpretation: Negative Depression Screening Done: Yes 89781 - PHQ-9 Billing: Yes Source: Developed by Drs. Kareem Haynes, Dylan Murphy and colleagues, with an educational manuel from [employer]. Thrive Questionnaire Date Thrive assessed: 05/10/25 I am a: Patient What is your living situation today?: I have a steady place to live Within the past 12 months, did the food you bought not last and you didn't have the money to get more?: Never true Within the past 12 months, did you worry whether your food would run out before you got money to buy more?: Never true Do you have trouble paying for medicines?: No Do you have trouble getting transportation to medical appointments?: No Do you have trouble paying your heating and electricity bill?: No Do you have trouble taking care of your child, family member or friend?: No Do you have trouble with day-to-day activities such as bathing, preparing meals, shopping, managing finances, etc.?: No Are you interested in more education?: No Please select the resources that you would like help with: None Currently or been in a relationship where the following occur: No concerns reported THRIVE Score: 0 AUDIT C Alcohol Use Questionnaire (AUDIT-C) 1. How often do you have a drink containing alcohol?: Never Total Score: 0 ROME-7 AMB Questionnaire ROME-7 Date ROME - 7 assessed: 07/21/24 Feeling nervous, anxious, or on edge: 0 = Not at all Not being able to stop or control worryin = Not at all Worrying too much about different things: 0 = Not at all Trouble relaxin = Not at all Being so restless that it is hard to sit still: 0 = Not at all Becoming easily annoyed or irritable: 0 = Not at all Feeling afraid as if something awful might happen: 0 = Not at all Total ROME-7 score (0-4 normal; 5-9 mild; 10-14 moderate; 15-21 severe): 0 Source: Developed by Drs. Kareem Haynes, Dylan Murphy and colleagues, with an educational manuel from [employer]. ROME-7 Assessment Billing ROME-7 Assessment Tool: ROME-7 Assessment 33991 Review of Systems Const Denies chills, Denies fever(s) and Denies headache(s) Eyes Denies change in vision ENT Denies ear discharge and Denies headache(s) Card Denies chest pain Resp Denies cough GI Reports no additional complaints Details: Currently sees Dr. Still for her routine Pap smear and mammogram screening and bone density has been ordered by Reports no additional complaints and Denies nipple discharge Musc Denies myalgias Skin/Breast Details: Complaining of pruritic rash on upper back and hyperpigmented patches on face Denies breast pain, Denies breast mass, Denies nipple discharge and Denies unusual bruising Neuro Denies headache(s) Psych Reports no additional complaints Endo Reports no additional complaints Timi/Lymph Reports no additional complaints Aller/Immun Reports no additional complaints Physical exam (Primary Care) Vital Signs: Last Vital Signs Temp 98.3 F 05/10/25 10:28 Pulse 83 05/10/25 10:28 Resp 15 05/10/25 10:28 BP 122/76 05/10/25 10:28 Pulse Ox 99 05/10/25 10:28 Oxygen Delivery Method Room Air 05/10/25 10:28 BMI result Body Mass Index 19.4 Tobacco/Smoking Status: Tobacco use Status Tobacco use date assessed 05/10/25 05/10/25 10:31 Patient Tobacco Use Status Never used Tobacco 05/10/25 10:31 e-Cigarette/Vaping Use Never Used 05/10/25 10:31 PHQ-9: PHQ-9 Score PHQ-9: Total score 0 05/10/25 11:34 Depression Screening Interpretation: Negative Thrive Assessment: Date of Thrive Assessment Date Thrive assessed 05/10/25 05/10/25 10:31 Currently or been in a relationship where the following occur: No concerns repo rted Advance Care Planning discussion: Completed/Scanned Date of discussion: 05/10/25 Who was present: Patient Forms completed: Health Care Proxy Time spent: 16-45 minutes Actual minutes spent: 2 Const General: comfortable, no acute distress and alert Orientation/consciousness: patient oriented x3 HENMT Ears: external ears normal General nose exam: Normal external nose present Mouth: Normal oral and palatal mucosa present, oropharynx normal and moist mucous membranes Eyes General: appearance normal, both eyes and all related structures Neck Neck: Yes full ROM, Yes no lymphadenopathy and Yes supple Chest Chest palpation & inspection: normal inspection of the chest Breast/axilla inspection: normal inspection of the breasts Breast/axilla palpation: normal palpation of the breasts Resp Effort & Inspection: normal respiratory effort and able to speak in complete sentences Auscultation: clear to auscultation bilaterally Cardio Rate: regular rate Rhythm: regular rhythm Heart sounds: S1 normal heart sound present and S2 normal heart sound present GI Palpation (GI): Soft to palpation, nontender and no masses Auscultation: normal bowel sounds General: Yes no CVA tenderness Back/Spine/Pelvis Back: no CVA tenderness and No back tenderness Skin Other: Hyperpigmented macules on face and back Neuro General: patient oriented x3, gait normal, tone normal, moves all extremities, Normal light touch and pain sensation and no focal motor deficits Cranial nerves: Yes CN's II-XII intact bilaterally Cognition (Neuro): normal cognition Extrem General: Yes full ROM, Yes no joint enlargement, Yes no clubbing, cyanosis or edema and Yes no calf tenderness Psych Appearance: grossly normal and well kempt Mental Status: mental status grossly normal Speech and movement: Normal speech and movement present Affect: normal affect Attitude: cooperative Thought process: Normal thought process present Results Reviewed Results Reviewed: Name: Sophie Butler Age/Sex: 64/F : 1960 Unit#: [id number] Attend Dr: Daisy Cordova MD Re05/09/25 Status: DEP REF Location: [facility] Disch: SPEC : [id number] SLICK: 05/09/25 STATUS: COMP REQ : [id number] RECD: 05/09/[address]: Daisy Cordova MD COMP: 05/09/25135 ENTERED: 05/09/25-[address]: ORDERED: HGB and HCT Test Result Flag Reference HGB 13.7 12.0-16.0 g/dl Name: Bacilio Butlerepifanio Tinsley Age/Sex: 64/F : 1960 Unit#: [id number] Attend Dr: Daisy Cordova MD Re05/09/25 Status: DEP REF Location: [facility] Disch: SPEC : [id number] SLICK: 05/09/25 STATUS: COMP REQ : [id number] RECD: 05/09/25-[address]: Daisy Cordova MD COMP: 05/09/25 ENTERED: 05/09/25-[address]: ORDERED: Met Prof Fast, AST, ALT, Lipid Panel, Vitamin D 25-OH Test Result Flag Reference Sodium 140 135-145 mmol/L Potassium 3.2 L 3.3-5.1 mmol/L CL 104 96-108 mmol/L CO2 28 22-29 mmol/L Gap 11 L 12-20 BUN 13 9-16 mg/dL Creat 0.61 0.5-1.4 mg/dL eGFR > 60 Chronic Kidney Disease: Estimated GFR < 60 mL/min/1.73m2 Severe Kidney Disease: Estimated GFR < 15 mL/min/1.73m2 FBS 104 H 60-99 mg/dL A fasting glucose from 100-125 mg/dl is considered impaired (pre-diabetes). CA 9.0 8.4-10.2 mg/dL AST (GOT) 33 H 5-31 U/L ALT (GPT) 30 0-31 U/L Triglyceride 261 H <150 mg/dL Desirable Triglyceride: less than 150 mg/dL Borderline High Triglyceride 150-199 mg/dL High Triglyceride: 200-499 mg/dL Very High Triglyceride: greater than or equal to 5OO mg/dL Cholesterol 250 H <200 mg/dL Desirable Cholesterol: less than 200 mg/dL Borderline High Cholesterol: 200-239 mg/dL High Cholesterol: greater than 239 mg/dL LDL Calculated 147 H <100 mg/dL Desirable LDL: less than 100 mg/dL Near Optimal/Above Optimal LDL: 110-129 mg/dL Borderline High LDL: 130-159 mg/dL High LDL: 160-189 mg/dL Very High LDL: greater than or equal to 190 mg/dL HDL 51 >40 mg/dL Desirable HDL: greater than 40 mg/dL Note: This HDL assay may give artificially low results in patients with liver disease. Vitamin D 25-OH 39.3 >30 ng/mL Health Based Reference Values* < 20 ng/mL Deficient 20-30 ng/mL Insufficient > 30 ng/mL Sufficient HCT 40.8 Coding Level of Care Code Est Pt Prev Care 40-64y(89412) Diagnoses Contact dermatitis, unspecified contact dermatitis type, unspecified trigger L25.9 Contact dermatitis trigger: unspecified trigger Contact dermatitis type: unspecified Skin cancer screening Z12.83 Essential hypertension I10 Immunity status testing Z01. Encounter for counseling regarding advance directives Z71. Annual visit for general adult medical examination with abnormal findings Z00.01 Mixed dyslipidemia E78.2 Age-related osteoporosis without current pathological fracture M81.0 Osteoporosis type: age-related Presence of current pathological fracture: without current pathological fracture Impaired fasting glucose R73.01 Vaginal dryness, menopausal N95.1 Additional Codes ROME-7 Assessment Billing - ROME-7 Assessment Tool: ROME-7 Assessment 45671 ([id number]) PHQ-9 - 44858 - PHQ-9 Billing: Yes ([id number]) Vital Signs *Quality* - Advance Care Planning discussion: Completed/Scanned ([id number]) Vital Signs *Quality* - Time spent: 16-45 minutes ([id number]) Assessment & Plan Assessment & Plan (1) Contact dermatitis: Code(s): L25.9 - Unspecified contact dermatitis, unspecified cause Category: Medical Qualifiers: Contact dermatitis trigger: unspecified trigger Contact dermatitis type : unspecified Qualified Code(s): L25.9 - Unspecified contact dermatitis, unspecified cause Plan: [facility] consult ordered (2) Skin cancer screening: Code(s): Z12.83 - Encounter for screening for malignant neoplasm of skin Category: Medical Plan: Referred to [facility] (3) Essential hypertension: Code(s): I10 - Essential (primary) hypertension Category: Medical Plan: Amlodipine discontinued due to complains of frequent urination and presence of hypokalemia. Switched to olmesartan 5 mg per tablet taken once a day. Reinforced importance of following low-salt diet and getting regular exercise. Have her come back in 1-2 weeks to see nurse navigator to get blood pressure checked (4) Immunity status testing: Code(s): Z01.84 - Encounter for antibody response examination Plan: Ordered rubeola IgG antibody (5) Encounter for counseling regarding advance directives: Code(s): Z71. - Other specified counseling Plan: Initiated the conversation about Advanced Directives. Advanced Directives help patients prepare for current and future decisions about their medical treatment and place of care. Discussed with patient that it is a process where a patients current condition and prognosis are reviewed, their wishes for information regarding their illness are elicited, and likely medical dilemmas are presented and options discussed. Healthcare proxy form completed today. The form can be amended as needed, reviewed yearly and make changes as needed (6) Annual visit for general adult medical examination with abnormal findings: Code(s): Z00.01 - Encounter for general adult medical examination with abnormal findings Plan: Recommended dental visit every 6 months and regular eye exams, at least every 2 years. Take adequate calcium in diet and vitamin-D 3 at 2000 IU per cap once a day, in addition to weight-bearing exercises to help maintain good muscle tone and weight control. Instructed to do self-breast exam, and continue to get yearly mammogram, already has appointment scheduled. Up-to-date with her vaccines, up-to-date with her colon cancer screening with negative Cologuard done in 2023. Sees [address] Still for her routine Pap and pelvic exam and for mammogram orders. She also ordered a bone density scan last year which showed presence of osteoporosis, has an appointment to discuss results next month. (7) Mixed dyslipidemia: Code(s): E78.2 - Mixed hyperlipidemia Category: Medical Plan: Reviewed recent fasting lipid profile with patient with l elevated LDL cholesterol triglyceride . Stressed importance of adherence to low-cholesterol diet and regular exercise, at least 30 minutes 3 to 4 times a week. Advised patient to make healthy food choices, eat more fruits, vegetables, whole grains, wild caught fish and low-fat dairy. Limit amount of meat and fried or fatty food products, as well as processed foods and fast foods. Follow-up scheduled with repeat fasting lipid panel in September 2025 after fasting labs. (8) Osteoporosis: Comment: In AP spine, with T-score-2.9 and femoral neck T-score-2.6 with total hip T-score-1.8 on bone density scan done at [facility] 09/21/2024, ordered by Dr. Still Code(s): M81.0 - Age-related osteoporosis without current pathological fracture Category: Medical Qualifiers: Osteoporosis type: age-related Presence of current pathological fracture: without current pathological fracture Qualified Code(s): M81.0 - Age- related osteoporosis without current pathological fracture Plan: Patient had a bone density scan in September 2024 which showed presence of osteoporosis in lumbar spine and left femoral neck, has an appointment with Dr. Still to discuss results next month. Reminded patient about taking adequate calcium from dietary sources and taking at least renal vitamin-D 3 supplements at least 2000 units daily and do regular weight-bearing exercise (9) Impaired fasting glucose: Code(s): R73.01 - Impaired fasting glucose Category: Medical Plan: Your previous fasting blood sugars were elevated above 100 mg/dL. Impaired glucose metabolism increases the risk for developing diabetes mellitus type 2, as well as heart attack and stroke later on. Lifestyle changes that promotes weight loss, healthy eating habits, and regular exercise are important, and can prevent the progression to diabetes (10) Vaginal dryness, menopausal: Code(s): N95.1 - Menopausal and female climacteric states Category: Medical Plan: Currently on estradiol vaginal cream 0.01% prescribed by her OBGYN Orders: Orders Rubeola IgG (Measles) 1 Week E87.6 - Hypokalemia, Z01.84 - Encounter for antibody response examination Basic Metabolic Panel Fasting 09/02/25 E78.2 - Mixed hyperlipidemia, I10 - Essential (primary) hypertension, R73.01 - Impaired fasting glucose Basic Metabolic Panel 1 Week I10 - Essential (primary) hypertension Lipid Panel 09/02/25 E78.2 - Mixed hyperlipidemia, I10 - Essential (primary) hypertension, R73.01 - Impaired fasting glucose Hemoglobin A1c 09/02/25 E78.2 - Mixed hyperlipidemia, I10 - Essential (primary) hypertension, R73.01 - Impaired fasting glucose Referrals Dermatology Referral L25.9 - Unspecified contact dermatitis, unspecified cause , L98.9 - Disorder of the skin and subcutaneous tissue, unspecified, Z12.83 - Encounter for screening for malignant neoplasm of skin Medications: New olmesartan 5 mg PO DAILY 30 tabs 1RF I10 - Essential (primary) hypertension Discontinued hydrochlorothiazide Discontinued Reason: Doctor's Order 25 mg PO DAILY 90 tabs 2RF
== END 2025-05-10 11:22 | disposition home or self-care (01) ==
LOC: HO.HMCC 09:29
PROVIDERS: PCP Internal Medicine; Visit Provider Internal Medicine
DX: Z00.00 Encounter for general adult medical examination without abnormal findings (principal); L25.9 Unspecified contact dermatitis, unspecified cause; Z12.83 Encounter for screening for malignant neoplasm of skin; I10 Essential (primary) hypertension; Z01.84 Encounter for antibody response examination; Z71.89 Other specified counseling; Z00.01 Encounter for general adult medical examination with abnormal findings; E78.2 Mixed hyperlipidemia; M81.0 Age-related osteoporosis without current pathological fracture; R73.01 Impaired fasting glucose; N95.1 Menopausal and female climacteric states

== ENCOUNTER → 2025-05-10 09:28 | Outpatient (BNVA) | payer OTHER, SELFPAY | PROVIDERS: PCP Internal Medicine; Visit Provider Internal Medicine | DX: Z00.01 Encounter for general adult medical examination with abnormal findings (principal); L25.9 Unspecified contact dermatitis, unspecified cause; I10 Essential (primary) hypertension; E78.2 Mixed hyperlipidemia; M81.0 Age-related osteoporosis without current pathological fracture; R73.01 Impaired fasting glucose; N95.1 Menopausal and female climacteric states; Z79.899 Other long term (current) drug therapy; Z71.89 Other specified counseling; Z13.31 Encounter for screening for depression | CPT/HCPCS: 96127; 99497 ==

== ENCOUNTER 2025-05-17 11:02 | Outpatient (REF) | payer OTHER, SELFPAY ==
--- OUTSIDE RECORDS SUMMARY | 2025-05-17 11:56 | XMS_ITS | Patient Health Record ---
Author Organization [facility] Address [address] [place] [address] Care Team Providers Care Environmental Maintenance Worker Name Role Phone PHAN DEMARCO MD Primary Care Provider Yasminekleber mirella Latrice Still Unavailable [phone] Allergies No Known Allergies Results Component Value Reference Range Notes Urinalysis Reviewed date:06/20/2024 02:24:45 PM Interpretation: Performing Lab: Notes/Report: PH 6.0 PROTEIN Neg GLUCOSE Neg BLOOD Neg [id number] IGP No Culture 30 Plus Reviewed date:06/24/2024 08:50:35 AM Interpretation: Performing Lab:[facility] [place], [address], [address], [place], Phone - [phone], Director - [facility] Notes/Report: Clinical Information:Vaginal/Cervical, LMP: Hys t 11/2021 Source.............Cervix;Vagina LMP / Prev Treat...Hyst Dates / Results....03/28/21 ASCUS, Neg HPV Other..............Post Menopausal;Estrogen Replace Rx No. of containers..01 ThinPrep Vial DIAGNOSIS: NEGATIVE FOR IN TRAEPITHELIAL LESION OR MALIGNANCY. Specimen adequacy: Satisfact ory for evaluation. No endocervical component is identified. Clinician provided ICD10: Z0 1.419 Performed by: Keny Nugent Fleet Director ([facility]) . . 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 CONTRACEPTION: condoms .CE: Smoking: Never a smoker .CE: ALCOHOL: none TEXT MESSAGING WHILE DRIVING: no SUNSCREEN: yes ILLICIT DRUGS: no SEATBEALT: yes Problems Problem Type SNOMED Code ICD Code Onset Dates Problem Status W/U Status Risk Notes Problem Postmenopausal atrophic vaginitis (78319956) Postmenopausal atrophic vaginitis (N95.2) Active confirmed Problem Incomplete uterovaginal prolapse (137152188) Incomplete uterovaginal prolapse (N81.2) Active confirmed Problem Herniation of rectum into vagina (510151762) Rectocele (N81.6) Active confirmed Problem Age-related osteoporosis (305266305) Age-related osteoporosis without current pathological fracture (M81.0) Active confirmed Problem Cystocele (162934322) Cystocele, unspecified (N81.10) Active confirmed Problem Benign essential hypertension (4953600) Essential hypertension, benign (401.1) Active confirmed Major Problem Gynecological examination normal (339387040414533) Routine gynecological examination (V72.31) Active confirmed Major Problem Screening for malignant neoplasm of colon (165804971) Special screening for malignant neoplasms, colon (V76.51) Active confirmed Major Vital Signs Temperature 97.9 degrees Fahrenheit 06/20/2024 Blood pressure diastolic 80 mm Hg 06/20/2024 Height 59 in 06/20/2024 Blood pressure systolic 126 mm Hg 06/20/2024 Weight 88 lbs 06/20/2024 BMI 17.77 kg/m2 06/20/2024 Encounters Encounter Location Date Provider Diagnosis [facility] [address] [place] [address] 06/20/2024 Latrice Still Encounter for gynecological examination (general) (routine) without abnormal findings Z01.419 ; Encounter for screening mammogram for malignant neoplasm of breast Z12.31 ; Postmenopausal atrophic vaginitis N95.2 and Encounter for screening for osteoporosis Z13.820 [facility] [address] [place] [address] 10/03/2024 Latrice Still Encounter for screening for [...] Screening 06/20/2024 MM Digital Mammo Screening 06/17/2023 [id number] 10/03/2024 CBC With Differential/Platelet-[id number] PTH, Intact-262409 10/03/2024 Vitamin D, 49-Mlsagen-[id number] 10/03/2024 Comp. Metabolic Panel [id number] 2023 Next Appt Details Provider Name:Latrice Farley constanza, 06/22/2025 01:00:00 PM, [address] [place] [address], [address], [place], [address], Insurance Providers Payer Name Payer Address Payer Phone Subscriber Number Group Number Insured Name Patient Relationship to Insured Coverage Start Date Coverage End Date [facility] [address] [place], [place] [id number] EFRAIN RECIO Self - patient is the [...]
[2025-05-17 14:01] LABS: Anion Gap 11 (12-20); Blood Urea Nitrogen 15 mg/dL (9-16); Calcium 9.4 mg/dL (8.4-10.2); Carbon Dioxide 28 mmol/L (22-29); Chloride 106 mmol/L (96-108); Estimated Glomerular Filt Rate > 60; Potassium 4.0 mmol/L (3.3-5.1); Sodium 141 mmol/L (135-145)
[2025-05-18 05:38] LABS: Rubeola IgG (Measles) 113.00 AU/mL
== END 2025-05-17 11:03 | disposition home or self-care (01) ==
LOC: HO.HMGCLDS 11:02
PROVIDERS: PCP Internal Medicine; Visit Provider Internal Medicine
DX: Z01.84 Encounter for antibody response examination (principal); I10 Essential (primary) hypertension; E87.6 Hypokalemia
CPT/HCPCS: 36415; 80048; 86765

== ENCOUNTER 2025-09-11 10:23 | Outpatient (REF) | payer OTHER, SELFPAY ==
[2025-09-11 14:24] LABS: Anion Gap 11 (12-20); Blood Urea Nitrogen 15 mg/dL (9-16); Calcium 9.5 mg/dL (8.4-10.2); Carbon Dioxide 27 mmol/L (22-29); Chloride 105 mmol/L (96-108); Cholesterol 269 mg/dL (<200); Estimated Glomerular Filt Rate > 60; HDL Cholesterol 56 mg/dL (>40); Potassium 3.6 mmol/L (3.3-5.1); Sodium 139 mmol/L (135-145); Triglycerides 148 mg/dL (<150)
== END 2025-09-11 10:24 | disposition home or self-care (01) ==
LOC: HO.HMGCLDS 10:23
PROVIDERS: PCP Internal Medicine; Visit Provider Internal Medicine
DX: I10 Essential (primary) hypertension (principal); E78.2 Mixed hyperlipidemia; R73.01 Impaired fasting glucose
CPT/HCPCS: 36415; 80048; 80061; 83036

== ENCOUNTER 2025-09-13 11:04 | Outpatient (AMB) | payer OTHER, SELFPAY ==
--- OUTSIDE RECORDS SUMMARY | 2024-10-03 04:08 | XMS_ITS ---
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 Name Role Phone DAV BLEVINS, PHAN Primary Care Provider Latrice Corral Unavailable [phone] REASON FOR VISIT BD WORK UP Encounters Encounter Location Date Provider Diagnosis [facility] [address] [address] 10/03/2024 Latrice Still Encounter for screening for osteoporosis Z13.820 and Age-related osteoporosis without current pathological fracture M81.0 Assessments Encounter Date Diagnosis (ICD Code) Assessment Notes Treatment Notes Treatment Clinical Notes Section Notes 10/03/2024 Encounter for screening for osteoporosis (ICD-10 - Z13.820) 10/03/2024 Age-related osteoporosis without current pathological fracture (ICD-10 - M81.0) Plan Of Treatment Pending Test Test Name Order Date [id number] 10/03/2024 CBC With Differential/Platelet-[id number] PTH, Intact-[id number] 10/03/2024 Vitamin D, 87-[id number] 10/03/2024 Comp. 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 E ncounter for screening for osteoporosis - Z13.820 2 . A ge-related osteoporosis without current pathological fracture - M81.0 Plan: * Treatment: * Procedure Codes: * * Date:
--- NOTE | 2025-09-13 11:30 | A.OFFPC_ITS ---
Vital Signs 09/13/25 11:37 Height 4 ft 11 in Weight 95 lb BMI 19.2 BP 130/68 Blood Pressure Location Rt brachial Position Sitting Respiration 16 Pulse 86 Pulse Source Pulse Oximeter Temp 98.3 F Temp Source Oral Pulse Oximetry (%) 98 Oxygen Delivery Method Room Air Intake Visit Reasons: 4 month follow up Intake Note: Pt is here today for her 4mo. 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 Required: No Allergies No Known Allergies Allergy (Verified 09/13/25 11:49) Medication List - Last Reconciled 09/13/25 by Daisy Cordova MD estradiol 0.01%(0.1mg/gram) vaginal olmesartan 5 mg PO DAILY triamcinolone acetonide 0.5% 1 appl topical BID PRN 14 days Tobacco use date assessed: 09/13/25 Dental Screening Dental Screen Date: 09/13/25 Did you have a dental visit in the last 12 months?: Yes Did you have a dental problem in the last 6 months where you did not have access to dental care?: No Was dental information given to patient?: Patient has dentist HPI 4 month follow up HPI Details The patient is a 64-year-old female presenting for management of chronic conditions and review of lab results. The patient has a history of hyperlipidemia but has never previously been on cholesterol-lowering medication. Recent fasting labs show a total cholesterol of 269 mg/dL, up from 250 mg/dL, and an LDL cholesterol of 184 mg/dL, up from 147 mg/dL, with a normal level being less than 100 mg/dL. Her diet is notable for high consumption of rice, pasta with ground beef, fried chicken, eggs with yolk, bagels, and pastries like Leche Flan and croissants, and she uses whole milk. The patient has a history of diabetes, and recent labs show a fasting glucose of 124 mg/dL and an HbA1c that has risen to 6.9% from 6.8%, with an average sugar of 151 mg/dL over the last three months. She has previously taken Zepbound 2.5 mg for one month and is on metformin. She sees an eye doctor and a foot doctor for diabetes eye screening and foot care For hypertension, the patient takes olmesartan and has also been on lisinopril 40 mg, with amlodipine added due to insufficient control. She reports occasional lightheadedness when getting up from a sitting or lying position. No history of falls or gait unsteadiness Other medical history includes a low vitamin D level of 17 ng/mL, down from 28 ng/mL. Her anemia has resolved, and she no longer takes iron. She takes omeprazole for acid reflux, which she notes can be managed for a couple of days without medication and seems to be food-dependent. She is being monitored for osteoporosis by Dr. Still but is not yet on any treatment. [facility] Medical History Osteoporosis Impaired fasting glucose Mixed dyslipidemia Skin cancer screening Hx of uterine prolapse Vaginal dryness, menopausal Essential hypertension Surgical History S/P partial hysterectomy Family History Other No significant family history Social History Housing: House Patient Tobacco Use Status: Never used Tobacco e-Cigarette/Vaping Use: Never Used service: No Current occupational status: retired Cognitive needs: No Hearing needs: No Vision needs: Yes Questionnaire PHQ-9 Over the last 2 weeks, how often have you been bothered by any of the following problems? 1. Little interest or pleasure in doing things: not at all 2. Feeling down, depressed, or hopeless: not at all 3. Trouble falling or staying asleep, or sleeping too much: not at all 4. Feeling tired or having little energy: not at all 5. Poor appetite or overeating: not at all 6. Feeling bad about yourself - or that you are a failure or have let yourself or your family down: not at all 7. Trouble concentrating on things, such as reading the newspaper or watching television: not at all 8. Moving or speaking so slowly that other people could have noticed. Or the opposite - being so fidgety or restless that you have been moving around a lot more than usual: not at all 9. Thoughts that you would be better off or of hurting yourself in some way: not at all Total score: 0 Depression Screening Interpretation: Negative Depression Screening Done: Yes Source: Developed by Drs. Kareem Haynes, Dylan Murphy and colleagues, with an educational manuel from [employer]. Thrive Questionnaire Date Thrive assessed: 05/10/25 I am a: Patient What is your living situation today?: I have a steady place to live Within the past 12 months, did the food you bought not last and you didn't have the money to get more?: Never true Within the past 12 months, did you worry whether your food would run out before you got money to buy more?: Never true Do you have trouble paying for medicines?: No Do you have trouble getting transportation to medical appointments?: No Do you have trouble paying your heating and electricity bill?: No Do you have trouble taking care of your child, family member or friend?: No Do you have trouble with day-to-day activities such as bathing, preparing meals, shopping, managing finances, etc.?: No Are you interested in more education?: No Please select the resources that you would like help with: None Currently or been in a relationship where the following occur: No concerns reported THRIVE Score: 0 AUDIT C Alcohol Use Questionnaire (AUDIT-C) 1. How often do you have a drink containing alcohol?: Never Total Score: 0 ROME-7 AMB Questionnaire ROME-7 Date ROME - 7 assessed: 09/13/25 Feeling nervous, anxious, or on edge: 0 = Not at all Not being able to stop or control worryin = Not at all Worrying too much about different things: 0 = Not at all Trouble relaxin = Not at all Being so restless that it is hard to sit still: 0 = Not at all Becoming easily annoyed or irritable: 0 = Not at all Feeling afraid as if something awful might happen: 0 = Not at all Total ROME-7 score (0-4 normal; 5-9 mild; 10-14 moderate; 15-21 severe): 0 Source: Developed by Drs. Kareem Haynes, Dylan Murphy and colleagues, with an educational manuel from [employer]. ROME-7 Assessment Billing ROME-7 Assessment Tool: ROME-7 Assessment 87971 Review of Systems Const Denies chills, Denies fever(s) and Denies headache(s) Eyes Denies change in vision ENT Denies ear discharge and Denies headache(s) Card Denies chest pain Resp Denies cough GI Reports no additional complaints Details: Currently sees Dr. Still for her routine Pap smear and mammogram screening and bone density has been ordered by Reports no additional complaints and Denies nipple discharge Musc Denies myalgias Skin/Breast Denies breast pain, Denies breast mass, Denies nipple discharge and Denies unusual bruising Neuro Denies headache(s) Psych Reports no additional complaints Endo Reports no additional complaints Timi/Lymph Reports no additional complaints Aller/Immun Reports no additional complaints Physical exam (Primary Care) Vital Signs: Last Vital Signs Temp 98.3 F 09/13/25 11:37 Pulse 86 09/13/25 11:37 Resp 16 09/13/25 11:37 BP 130/68 09/13/25 11:37 Pulse Ox 98 09/13/25 11:37 Oxygen Delivery Method Room Air 09/13/25 11:37 BMI result Body Mass Index 19.2 Tobacco/Smoking Status: Tobacco use Status Tobacco use date assessed 09/13/25 09/13/25 11:41 Patient Tobacco Use Status Never used Tobacco 09/13/25 11:31 e-Cigarette/Vaping Use Never Used 09/13/25 11:31 PHQ-9: PHQ-9 Score PHQ-9: Total score 0 09/13/25 11:51 Depression Screening Interpretation: Negative Thrive Assessment: Date of Thrive Assessment Date Thrive assessed 05/10/25 09/13/25 11:31 Currently or been in a relationship where the following occur: No concerns reported Const General: no acute distress and alert Orientation/consciousness: patient oriented x3 HENMT Ears: external ears normal General nose exam: Normal external nose present Mouth: Normal oral and palatal mucosa present, oropharynx normal and moist mucous membranes Eyes General: appearance normal, both eyes and all related structures Neck Neck: Yes full ROM, Yes no lymphadenopathy and Yes supple Chest Chest palpation & inspection: normal inspection of the chest Breast/axilla inspection: normal inspection of the breasts Breast/axilla palpation: normal palpation of the breasts Resp Effort & Inspection: normal respiratory effort and able to speak in complete sentences Auscultation: clear to auscultation bilaterally Cardio Rate: regular rate Rhythm: regular rhythm Heart sounds: S1 normal heart sound present and S2 normal heart sound present GI Palpation (GI): Soft to palpation, nontender and no masses Auscultation: normal bowel sounds General: Yes no CVA tenderness Back/Spine/Pelvis Back: no CVA tenderness and No back tenderness Neuro General: patient oriented x3, gait normal, tone normal, moves all extremities, Normal light touch and pain sensation and no focal motor deficits Cranial nerves: Yes CN's II-XII intact bilaterally Cognition (Neuro): normal cognition Extrem General: Yes full ROM, Yes no joint enlargement, Yes no clubbing, cyanosis or edema and Yes no calf tenderness Psych Appearance: grossly normal and well kempt Mental Status: mental status grossly normal Speech and movement: Normal speech and movement present Affect: normal affect Results Reviewed Results Reviewed: Name: Sophie Butler Age/Sex: 64/F : 1960 Unit#: [id number] Attend Dr: Daisy Cordova MD Re09/11/25 Status: DEP [facility] Disch: SPEC : [id number] SLICK: 09/11/25 STATUS: COMP REQ : [id number] RECD: 09/11/[address]: Daisy Cordova MD COMP: 09/11/25 ENTERED: 09/11/25 [facility] DR: ORDERED: Met Prof Fast, Lipid Panel Test Result Flag Reference Sodium 139 135-145 mmol/L Potassium 3.6 3.3-5.1 mmol/L CL 105 96-108 mmol/L CO2 27 22-29 mmol/L Gap 11 L 12-20 BUN 15 9-16 mg/dL Creat 0.59 0.5-1.4 mg/dL eGFR > 60 Chronic Kidney Disease: Estimated GFR < 60 mL/min/1.73m2 Severe Kidney Disease: Estimated GFR < 15 mL/min/1.73m2 FBS 98 60-99 mg/dL CA 9.5 8.4-10.2 mg/dL Triglyceride 148 <150 mg/dL Desirable Triglyceride: less than 150 mg/dL Borderline High Triglyceride 150-199 mg/dL High Triglyceride: 200-499 mg/dL Very High Triglyceride: greater than or equal to 5OO mg/dL Cholesterol 269 H <200 mg/dL Desirable Cholesterol: less than 200 mg/dL Borderline High Cholesterol: 200-239 mg/dL High Cholesterol: greater than 239 mg/dL LDL Calculated 184 H <100 mg/dL Desirable LDL: less than 100 mg/dL Near Optimal/Above Optimal LDL: 110-129 mg/dL Borderline High LDL: 130-159 mg/dL High LDL: 160-189 mg/dL Very High LDL: greater than or equal to 190 mg/dL HDL 56 >40 mg/dL Desirable HDL: greater than 40 mg/dL Note: This HDL assay may give artificially low results in patients with liver disease. Coding Level of Care Code Est Pt Level 4 (24240) Complex EM visit Add On G2211 Diagnoses Essential hypertension I10 Mixed dyslipidemia E78.2 Impaired fasting glucose R73.01 Additional Codes ROME-7 Assessment Billing - ROME-7 Assessment Tool: ROME-7 Assessment 53340 ([id number]) Assessment & Plan Assessment & Plan (1) Essential hypertension: Code(s): I10 - Essential (primary) hypertension Category: Medical Plan: Blood pressure at goal of less than 130/80. Continue with olmesartan 5 mg daily, refill sent. Reinforced importance of following a low sodium diet, getting regular exercise, and lowering stress levels. (2) Mixed dyslipidemia: Code(s): E78.2 - Mixed hyperlipidemia Category: Medical Plan: Reviewed latest fasting lab results with patient which showed elevated LDL cholesterol higher than last check. Started on rosuvastatin 5 mg per tablet taken once a day. Reinforced importance of adhering to a low-cholesterol diet getting regular exercise. Will repeat another fasting lipid panel in April 2026 as [place] March of next year (3) Impaired fasting glucose: Code(s): R73.01 - Impaired fasting glucose Category: Medical Plan: Your previous fasting blood sugars were elevated above 100 mg/dL. Impaired glucose metabolism increases the risk for developing diabetes mellitus type 2, as well as heart attack and stroke later on. Lifestyle changes that promotes weight loss, healthy eating habits, and regular exercise are important, and can prevent the progression to diabetes Orders: Orders Aspartate Amino Transferase 04/02/26 E78.2 - Mixed hyperlipidemia, I10 - Essential (primary) hypertension Alanine Aminotransferase 04/02/26 E78.2 - Mixed hyperlipidemia, I10 - Essential (primary) hypertension Basic Metabolic Panel Fasting 04/02/26 E78.2 - Mixed hyperlipidemia, I10 - Essential (primary) hypertension Lipid Panel 04/02/26 E78.2 - Mixed hyperlipidemia, I10 - Essential (primary) hypertension Medications: New rosuvastatin 5 mg PO DAILY 90 tabs 1RF Refilled olmesartan 5 mg PO DAILY 90 tabs 4RF I10 - Essential (primary) hypertension
[2025-09-13 11:37] VITALS: BP 130/68; PULSE 86; RESP 16; TEMP 36.8; O2SAT 98; BMI 19.2
--- OUTSIDE RECORDS SUMMARY | 2025-09-13 13:43 | XMS_ITS | Patient Health Record ---
Author Organization [facility] Address [address] [place] [address] Care Team Providers Care Cigarette Lighter Repairer Name Role Phone PHAN DEMARCO MD Primary Care Provider Yasminev Latrice Vidales Unavailable [phone] Allergies No Known Allergies Results Component Value Reference Range Notes Urinalysis Reviewed date:06/22/2025 01:17:34 PM Interpretation: Performing Lab: Notes/Report: PH 5.0 PROTEIN Neg GLUCOSE Neg BLOOD Neg Reason For Referral No Information Medications Medication SIG (Take, Route, Frequency, Duration) Notes Start Date End Date Status Estradiol Vaginal Cream 0.01% 1 Gram to the affected area Vaginal/Vulva 1 GRAM INTO VAGINA AND 0.5 GRAM ALONG THE INTROITUS TWICE WEEKLY; Duration: 90 days 06/22/2025 Active Estradiol Vaginal Cream 0.01% 1 Gram to the affected area Vaginal/Vulva Twice a week; Duration: 90 Days 06/17/2023 Active Olmesartan Medoxomil 5 MG TAKE 1 TABLET (5 MG) ORALLY DAILY Oral; Duration: 30 Days Active Social History Tobacco Use: Social History [...] 2 Children LIVES WITH: spouse 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 CONTRACEPTION: condoms .CE: Smoking: Never a smoker .CE: ALCOHOL: none TEXT MESSAGING WHILE DRIVING: no SUNSCREEN: yes ILLICIT DRUGS: no SEATBEALT: yes Problems Problem Type SNOMED Code ICD Code Onset Dates Problem Status W/U Status Risk Notes Problem Postmenopausal atrophic vaginitis (25391659) Postmenopausal atrophic vaginitis (N95.2) Active confirmed Problem Incomplete uterovaginal prolapse (181910423) Incomplete uterovaginal prolapse (N81.2) Active confirmed Problem Herniation of rectum into vagina (336519929) Rectocele (N81.6) Active confirmed Problem Age-related osteoporosis (057714382) Age-related osteoporosis without current pathological fracture (M81.0) Active confirmed Problem Cystocele (985730722) Cystocele, unspecified (N81.10) Active confirmed Problem Benign essential hypertension (7745026) Essential hypertension, benign (401.1) Active confirmed Major Problem Gynecological examination normal (297560047737325) Routine gynecological examination (V72.31) Active confirmed Major Problem Screening for malignant neoplasm of colon (001387044) Special screening for malignant neoplasms, colon (V76.51) Active confirmed Major Vital Signs Temperature 97.4 degrees Fahrenheit 06/22/2025 Blood pressure diastolic 80 mm Hg 06/22/2025 Height 59 in 06/22/2025 Blood pressure systolic 128 mm Hg 06/22/2025 Weight 96 lbs 06/22/2025 BMI 19.39 kg/m2 06/22/2025 Encounters Encounter Location Date Provider Diagnosis Total [facility] [address] [address] 06/22/2025 Latrice Still Encounter for gynecological examination (general) (routine) without abnormal findings Z01.419 ; Encounter for screening mammogram for malignant neoplasm of breast Z12.31 ; Age-related osteoporosis without current pathological fracture M81.0 ; Postmenopausal atrophic vaginitis N95.2 and Dense breasts, unspecified R92.30 Total [facility] [address] [place] [address] 10/03/2024 Latrice Still Encounter for screening for osteoporosis Z13.820 and Age-related osteoporosis without current pathological fracture M81.0 Assessments Encounter Date Diagnosis (ICD Code) Assessment Notes Treatment Notes Treatment Clinical Notes Section Notes 10/03/2024 Encounter for screening for osteoporosis (ICD-10 - Z13.820) 06/22/2025 Encounter for gynecological examination (general) (routine) without abnormal findings (ICD-10 - Z01.419) NO PAP TEST, DUE IN 2026. 06/22/2025 Encounter for screening mammogram for malignant neoplasm of breast (ICD-10 - Z12.31) REGULAR MAMMOGRAMS AND SBE'S. 10/03/2024 Age-related osteoporosis without current pathological fracture (ICD-10 - M81.0) 06/22/2025 Age-related osteoporosis without current pathological fracture (ICD-10 - M81.0) DISCUSSED HER LAST BMD RESULTS AND OSTEOPOROSIS AND ITS IMPACT ON HER HEALTH. ADEQUATE CALCIUM AND VIT D. WEIGHT BEARING EXERCISES. OSTEO WORK UP WAS ORDERED. RTO TO DISCUSS THE RESULTS AND TX OPTIONS. 06/22/2025 Postmenopausal atrophic vaginitis (ICD-10 - N95.2) CONTINUE ESTRADIOL CREAM. RX AND INSTRUCTIONS WERE GIVEN. 06/22/2025 Dense breasts, unspecified (ICD-10 - R92.30) DISCUSSED DENSE BREASTS ON MAMMOGRAM AND ITS IMPLICATIONS. 3D MAMMOGRAMS WERE RECOMMENDED. Plan Of Treatment Pending Test Test Name Order Date MAMMOGRAM, SCREENING 03/28/2021 MAMMOGRAM, SCREENING 06/16/2022 MAMMOGRAM, SCREENING 06/17/2023 MAMMOGRAM, SCREENING 06/20/2024 MAMMOGRAM, SCREENING 06/22/2025 Urinalysis 06/16/2022 THIN PREP,HPV,GIOVANNY IF HPV+ (>29YR)(SCRN) 02/23/2018 BONE DENSITY 03/28/2021 BONE DENSITY 06/20/2024 MM Digital Mammo Screening 10/09/2016 MM Digital Mammo Screening 06/15/2019 MM Digital Mammo Screening 03/28/2021 MM Digital Mammo Screening 06/16/2022 MM Digital Mammo Screening 06/17/2023 MM Digital Mammo Screening 06/22/2025 MM Digital Mammo Screening 06/20/2024 TSH-[id number] 06/22/2025 TSH-[id number] 10/03/2024 CBC With Differential/Platelet-[id number] PTH, Intact-[id number] 10/03/2024 PTH, Intact-919447 06/22/2025 CBC, Platelet, No Differential-[id number] Vitamin D, 64-Alkcgig-[id number] 06/22/2025 Vitamin D, 49-Kwzleov-200885 10/03/2024 Comp. Metabolic Panel [id number] 2023 Comp. Metabolic Panel [id number] 2024 Next Appt Details Provider Name:Latrice Farley constanza, 06/29/2026 01:00:00 PM, [address] [place] [address], [address], [place], [address], Insurance Providers Payer Name Payer Address Payer Phone Subscriber Number Group Number Insured Name Patient Relationship to Insured Coverage Start Date Coverage End Date [facility] [address] [place], [place] [id number] EFRAIN RECIO Self - patient is the insured Medical (General) History Medical History History ICD Code Essential (primary) hypertension I10 Epidermal thickening, unspecified L85.9 Inconclusive mammogram R92.2 Postmenopausal atrophic vaginitis N95.2 Incomplete uterovaginal prolapse N81.2 Cystocele, unspecified N81.10 Rectocele N81.6 Mammographic heterogeneous density, bila teral breasts R92.333 Age-related osteoporosis without current pathological fracture M81.0 Other specified disorders of bone densit y and structure, multiple sites M85.89 Dense breasts, unspecified R92.30 Surgical History Surgery Date(Month/Year) Colonoscopy 2010 Uterine Prolapse S/P Hysterectomy 11/2021 Hospitalization History Reason Date(Month/Year) See Surgical Hx 2 Vaginal Deliveries
== END 2025-09-13 12:09 | disposition home or self-care (01) ==
LOC: HO.HMCC 11:05
PROVIDERS: PCP Internal Medicine; Visit Provider Internal Medicine
DX: I10 Essential (primary) hypertension (principal); E78.2 Mixed hyperlipidemia; R73.01 Impaired fasting glucose

== ENCOUNTER → 2025-09-13 11:04 | Outpatient (BNVA) | payer OTHER, SELFPAY | PROVIDERS: PCP Internal Medicine; Visit Provider Internal Medicine | DX: E78.2 Mixed hyperlipidemia (principal); E11.9 Type 2 diabetes mellitus without complications; I10 Essential (primary) hypertension; E55.9 Vitamin D deficiency, unspecified | CPT/HCPCS: 96127; 99212 ==